=== PATIENT | male | born 1950 | race Caucasian/White ===

== ENCOUNTER 2016-12-03 09:37 | Emergency (ER) | payer OTHER ==
[2016-12-03 09:43] VITALS: TEMP 98.1
--- NOTE | 2016-12-03 10:32 | EDPHY ---
H & P Stated Complaint: GARCÍA & disoriented & dizzy Source: Patient, Family Exam Limitations: No limitations - Personal History Current Tetanus/Diphtheria Vaccine: No Current Tetanus Diphtheria and Acellular Pertussis (TDAP): No - Medical/Surgical History Hx Asthma: No Hx Chronic Respiratory Disease: No Hx Diabetes: No Hx Cardiac Disease: No Hx Renal Disease: No Hx Cirrhosis: No Hx Alcoholism: No Hx HIV/AIDS: No Hx Splenectomy or Spleen Trauma: No Other PMH: DVT - Social History Smoking Status: Former smoker HPI/ROS: CHIEF COMPLAINT: Headache, confusion HISTORY OF PRESENT ILLNESS: patient reports a sudden onset headache this morning around 7:30 a.m.. This was at the top of the head he describes. It was a sharp, stabbing, throbbing pain. Very severe at the time. Last approximately 30 minutes. He associated with some "confusion, and "he describes this as "I just did not feel like I understood what was going on." His was present and denies any stroke-like symptoms. He has no unilateral complaints or weakness. No sensory changes. Some nausea but no vomiting. No neck pain or stiffness. No fever or chills. Headache at this time is very mild. Unpredictable modifying factors for this. Does take Coumadin for DVT prophylaxis due to factor 5 [place]. No other associated complaints or modifying factors REVIEW OF SYSTEMS: Ten systems reviewed and are negative unless otherwise noted in the HPI EXAMINATION General Appearance: Alert, no distress Head: normocephalic, atraumatic Eyes: Pupils equal and round, no conjunctival pallor or injection ENT, Mouth: Mucous membranes moist. Uvula midline. Neck: Normal inspection, supple, non-tender. full range of motion all planes without pain. No meningismus. Respiratory: Lungs are clear to auscultation Cardiovascular: Regular rate and rhythm Gastrointestinal: Abdomen is soft and nontender Back: non-tender, no bony abnormalities Neurological: A&O, To 12 grossly intact. No focal deficits. No pronator drift. Strength is 5/5 in all limbs. Sensory intact. NIH stroke scale is 0 Skin: Warm and dry, no rash Extremities: Nontender, no pedal edema Psychiatric: Mood and affect normal DIFFERENTIAL DIAGNOSES: Including but not limited to cephalgia, vertigo, migraine, SAH, SDH MDM: 11:12 a.m. Sudden onset of headache this morning that has significantly improved. He has no focal deficits of any kind. He is awake and alert. No evidence of stroke- like symptoms by history or examination. Labs are pending at this time, but CT scan of the head was just read as no acute findings. there is some atherosclerotic an age-appropriate changes but no focal findings. He remains awake and alert, hemodynamically stable, and nonfocal. 11:[address] scan is negative, but given his sudden onset of headache we had a very lengthy discussion regarding the recommendation of lumbar puncture to further rule out subarachnoid hemorrhage. Dr. Kim personally had this discussion with him, including all the risks, benefits and alternatives. The patient has declined LP, but he has consented to a CT angiogram. CT angio of the head and neck have been ordered at this time. 1:33 p.m. I have re-evaluated the patient. He remained stable and without neuro deficits. He has had a CTA and we are awaiting the read by the Radiology. 2:[address] Chaudhry At the CTAs of the head and neck are negative for any abnormality. He is resting comfortably in asking to be discharged home. Stable for discharge home he will follow up with his primary care physician. ER precautions discu EKG: Interpreted by Dr. Kim. Rate is 82 beats per minute, normal sinus rhythm. P are 176, QTC 380, borderline left axis. T-waves inverted in aVL only. No ST depression or elevation. Interpretation: Normal sinus rhythm with left axis deviation. SUPERVISION: Patient was evaluated in conjunction with the supervising physician. Please see their note for details. (Louis Quiros) Constitutional: Initial Vital Signs Temperature (C) 98.1 F 12/03/16 09:40 Heart Rate 85 12/03/16 09:40 Respiratory Rate 16 12/03/16 09:40 Blood Pressure 179/110 H 12/03/16 09:40 O2 Sat (%) 94 12/03/16 09:40 O2 Delivery Mode Room Air Allergies/Adverse Reactions: No Known Allergies Allergy (Unverified 02/20/11 14:25) Home Medications: Medication Instructions Recorded Niacin [Niaspan] 1,000 mg PO .DAILY 02/20/11 WARFARIN SODIUM [Coumadin] 4 mg PO .DAILY 02/20/11 Medical Decision Making ED Course/Re-evaluation: The patient was evaluated and managed by the physician's orthopedic physician assistant. My cosignature indicates that I reviewed the chart and I agree with the findings and plan of care as documented. I am the secondary supervising physician. I personally evaluated the patient. I took further history. GENERAL: Well-appearing, in no acute distress, alert. HEENT: Eyes normal to inspection. NECK: supple RESPIRATORY: no respiratory distress. CVS: well perfused. SKIN: Normal color. No pallor. EXTREMITIES: normal. NEURO/PSYCH: Higher functions: Alert and Oriented x3. Normal speech and cognition. Normal mood and affect. Cranial nerves: Normal as tested. Cerebellar: Normal as tested. Good finger to nose, good [id number], normal gait. Peripheral exam: Normal motor exam. Normal sensation. I had a long discussion with the patient and his regarding possible etiologies. I discussed subarachnoid hemorrhage and the diagnostic limitations thus far. I discussed the pros and cons of the procedure. Patient does not want a lumbar puncture this time. He was, did make this decision. He did agree to a CT angiogram of the neck. I discussed this with the PA. (Elba Kim) - Data Points Laboratory Results: Laboratory Results 12/03/16 10:30 12/03/16 10:30 12/03/16 10:30 WBC 5.63 10^3/uL (3.80-9.50) RBC 5.96 10^6/uL (4.40-6.38) Hgb 18.2 H g/dL (13.7-17.5) Hct 51.3 H % (40.0-51.0) MCV 86.1 fL (81.5-99.8) MCH 30.5 pg (27.9-34.1) MCHC 35.5 g/dL (32.4-36.7) RDW 13.0 % (11.5-15.2) Plt Count 210 10^3/uL (150-400) MPV 10.0 fL (8.7-11.7) Neut % (Auto) 68.3 % (39.3-74.2) Lymph % (Auto) 21.3 % (15.0-45.0) [place]ama % (Auto) 8.2 % (4.5-13.0) Eos % (Auto) 1.4 % (0.6-7.6) Baso % (Auto) 0.4 % (0.3-1.7) Nucleat RBC Rel Count 0.0 % (0.0-0.2) Absolute Neuts (auto) 3.85 10^3/uL (1.70-6.50) Absolute Lymphs (auto) 1.20 10^3/uL (1.00-3.00) Absolute Monos (auto) 0.46 10^3/uL (0.30-0.80) Absolute Eos (auto) 0.08 10^3/uL (0.03-0.40) Absolute Basos (auto) 0.02 10^3/uL (0.02-0.10) Absolute Nucleated RBC 0.00 10^3/uL (0-0.01) Immature Gran % 0.4 % (0.0-1.1) Immature Gran # 0.02 10^3/uL (0.00-0.10) PT 21.3 H SEC (12.0-15.0) INR 1.84 H (0.83-1.16) Sodium 142 mEq/L (134-144) Potassium 4.2 mEq/L (3.5-5.2) Chloride 107 mEq/L (97-110) Carbon Dioxide 25 mEq/l (22-31) Anion Gap 10 mEq/L (8-16) BUN 10 mg/dL (7-23) Creatinine 0.8 mg/dL (0.7-1.3) Estimated GFR > 60 Glucose 95 mg/dL (70-100) Calcium 9.5 mg/dL (8.5-10.4) Troponin I < 0.012 ng/mL (0-0.034) Departure - Departure Disposition: Home, Routine, Self-Care Clinical Impression: Nausea Headache Qualifiers: Headache type: unspecified Headache chronicity pattern: acute headache Intractability: not intractable Qualifier Code: (R51) Headache Condition: Good Instructions: Acute Headache (ED) Additional Instructions: follow-up with primary care physician. Return to the ER for worsening pain or return of symptoms. Referrals: Marek Pena MD [Primary Care Provider] - As per Instructions
--- NOTE | 2016-12-03 10:33 | CPEKG ---
Heart Rate: 82 RR Interval: 732 P-R Interval: 176 QRSD Interval: 102 QT Interval: 380 QTC Interval: 444 P [place]: 34 QRS [place]: -18 T Wave [place]: 19 EKG Severity - OTHERWISE NORMAL ECG - EKG Impression: SINUS RHYTHM EKG Impression: BORDERLINE LEFT AXIS DEVIATION Electronically Signed By: Elba Kim 03-Dec-2016 15:19:13
[2016-12-03 10:42] LABS: % IMMATURE GRANULYOCYTES 0.4 % (0.0-1.1); ABSOLUTE IMMATURE GRANULOCYTES 0.02 10^3/uL (0.00-0.10); ADD DIFF? NO; ADD MORPH? NO; ADD SCAN? NO; ATYPICAL LYMPHOCYTE FLAG 0 (0-99); FRAGMENT RBC FLAG 0 (0-99); HEMATOCRIT 51.3 % (40.0-51.0); HEMOGLOBIN 18.2 g/dL (13.7-17.5); LEFT SHIFT FLG 0 (0-99); LIPEMIA HEMOLYSIS FLAG 90 (0-99); MEAN CELL HEMOGLOBIN 30.5 pg (27.9-34.1); MEAN CELL HEMOGLOBIN CONCENTR. 35.5 g/dL (32.4-36.7); MEAN CELL VOLUME 86.1 fL (81.5-99.8); PLATELET CLUMPS FLAG 0 (0-99); PLATELET COUNT 210 10^3/uL (150-400); RED BLOOD CELL COUNT 5.96 10^6/uL (4.40-6.38)
[2016-12-03 10:56] LABS: ANION GAP 10 mEq/L (8-16); CALCIUM 9.5 mg/dL (8.5-10.4); CARBON DIOXIDE 25 mEq/l (22-31); CHLORIDE 107 mEq/L (97-110); CREATININE 0.8 mg/dL (0.7-1.3); GLOMERULAR FILTRATION RATE > 60; GLUCOSE 95 mg/dL (70-100); INR 1.84 (0.83-1.16); POTASSIUM 4.2 mEq/L (3.5-5.2); PROTIME(PATIENT) 21.3 SEC (12.0-15.0); SODIUM 142 mEq/L (134-144)
--- NOTE | 2016-12-03 11:07 | CT ---
"CT Scan of the Head (Without Contrast) Clinical History: 66-year-old male in the ED who has been weak and disoriented today, and also compla ins of a headache. The patient is on Coumadin for a DVT. Technique: Axial unenhanced images were obtained from the vertex through the skull base, reformatted at 5.00 and 1.50 mm increments, and reviewed in bone, brain, and subdural windows. Images were repro cessed in parasagittal and paracoronal planes. Dose reduction techniques were utilized. Comparison Study: None. Findings: The ventricles and basilar cisterns are normal in size (given the patient's age), and symme trical in configuration. There is no midline shift or other evidence of mass effect. There is no abno rmal intra or extra-axial blood collection, or acute infarction identified. There is some mild perive ntricular chronic microvascular ischemic gliosis. The paranasal sinuses and the mastoids are patent. The craniocervical junction, sella turcica, pineal gland, and the orbits are within normal limits. Th ere is no evidence of a skull fracture, or lytic or blastic calvarial lesion. There is mural atherosc lerotic calcification of the vertebral arteries and of the cavernous carotid arteries. Impression: There is no acute abnormality identified on this unenhanced CT evaluation. If there is further clinical concern regarding the patient's symptoms, MR imaging is suggested, if no t otherwise contraindicated. Results were discussed with Louis Quiros PA-C. A Document Only message has been documented for Louis Quiros in the [employer] | Critical Re sult system on 12/03/2016 11:03, Message ID [id number]."
[2016-12-03 11:44] LABS: TROPONIN I < 0.012 ng/mL (0-0.034)
[2016-12-03] MEDS ORDERED: IOPAMIDOL (ISOVUE 370) 100 ML BTL IV ONE (12:16)
--- NOTE | 2016-12-03 14:32 | CT ---
CT Angiography Head and Neck INDICATION: Confusion and dizziness. Headache. Currently on Coumadin. TECHNIQUE: 0.75 mm thin axial images are performed from the vertex of the brain to thoracic inlet dur ing intravenous contrast injection of 90 mL of [id number]-[id number]. Coronal and parasagittal reformatted image s are reviewed on workstation. Low-dose techniques are utilized. FINDINGS: CT angiogram neck: Three-vessel takeoff from the thoracic aorta is normal. No anatomic variants. Zeynep ent has codominant vertebral arteries in the neck. The carotid vessels are within normal limits. No d issection. No occlusion. No mural thickening. Incidentally noted are small shotty submental and submandibular lymph nodes, as well as along the cer vical chains bilaterally. There is no evidence for a soft tissue mass or asymmetry. The submandibular and parotid glands are symmetric bilaterally. Patient has degenerative cervical spine disease mostly characterized by uncinate process hypertrophy and facet arthropathy at multiple levels. No obvious canal compromise. CT angiogram brain: The [place] is intact with a large left-sided posterior communicating ar alex. The right-sided PCOM is either small or absent. No filling defects in the middle or anterior ci rculation. The vertebrobasilar system is normal. No aneurysm. Peripheral vessel enhancement is normal . IMPRESSION: Normal angiogram of the head and neck vessels. Stenoses are calibrated based on NASCET criteria.
[2016-12-03 14:39] VITALS: BP 145/96; PULSE 76; RESP 16; O2SAT 95
== END 2016-12-03 14:38 | disposition home or self-care (01) ==
DX: R51 Headache (principal); R11.0 Nausea; Z87.891 Personal history of nicotine dependence; Z79.01 Long term (current) use of anticoagulants
CPT/HCPCS: Q9967